=== PATIENT | male | born 1955 | race Caucasian/White ===

== ENCOUNTER 2016-12-20 09:23 | Emergency (ER) | payer BC ==
[~2016-12-20] VITALS: Ht 182.9 cm; Wt 83.9 kg
[2016-12-20 09:34] VITALS: BP_SYST 164
--- NOTE | 2016-12-20 09:37 | NUR ---
Pt to bed 7 Addendum: 12/20/16 at 0941 by SDEDSTC to bed 2
--- NOTE | 2016-12-20 09:41 | NUR ---
ER at bedside examining patient.
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
[2016-12-20] MEDS ORDERED: LIDOCAINE/EPI 1% 1:100000 20 ML VIAL IJ ONE (09:45)
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
[2016-12-20] MEDS ORDERED: LIDOCAINE/EPI 1% 1:100000 20 ML VIAL INJ ONE (09:56)
--- NOTE | 2016-12-20 10:00 | NUR ---
JORDI Co Crawford at bedside speaking with pt.
[2016-12-20 10:36] VITALS: BP_SYST 164
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
== END 2016-12-20 10:36 | disposition home or self-care (01) ==
LOC: SED 09:23
DX: S01.81XA Laceration without foreign body of other part of head, initial encounter (principal); Y04.2XXA Assault by strike against or bumped into by another person, initial encounter; Y93.01 Activity, walking, marching and hiking; Y92.89 Other specified places as the place of occurrence of the external cause; Y99.8 Other external cause status
CPT/HCPCS: 99284